=== PATIENT | female | born 1945 ===

== ENCOUNTER 2024-01-21 09:12 | Outpatient (RCR) | payer MEDICARE, BC, SELFPAY | END 2024-01-21 23:59 | disposition home or self-care (01) | LOC: RPT 09:12 | PROVIDERS: ATTENDING PHYSICIAN Urology; FAMILY PHYSICIAN Student in an Organized Health Care Education/Training Program | DX: N39.41 Urge incontinence (principal); M62.89 Other specified disorders of muscle | CPT/HCPCS: 97110; 97161; 97530 ==

== ENCOUNTER 2024-03-31 14:01 | Outpatient (RCR) | payer MEDICARE, BC, SELFPAY | END 2024-03-31 23:59 | disposition home or self-care (01) | LOC: RPT 14:01 | PROVIDERS: ATTENDING PHYSICIAN Urology; FAMILY PHYSICIAN Student in an Organized Health Care Education/Training Program | DX: N39.41 Urge incontinence (principal); M62.89 Other specified disorders of muscle; Z73.6 Limitation of activities due to disability | CPT/HCPCS: 97110; 97530 ==

== ENCOUNTER → 2024-08-31 06:32 | Day surgery (SDC) | payer MEDICARE, BC, SELFPAY | LOC: GI 06:32 | PROVIDERS: ATTENDING PHYSICIAN Specialist | PROC: 0DBN8ZX Excision of Sigmoid Colon, Via Natural or Artificial Opening Endoscopic, Diagnostic (ICD-10-PCS; 2024-08-31) | DX: R19.5 Other fecal abnormalities (principal); D12.5 Benign neoplasm of sigmoid colon | CPT/HCPCS: 45385; 88305 ==